=== PATIENT | female | born 1985 | race Asian ===

== ENCOUNTER 2017-01-17 09:43 | Emergency (ER) | payer OTHER ==
[2017-01-17 09:54] VITALS: BP 124/70; PULSE 80; RESP 16; TEMP 98.6; O2SAT 98
--- NOTE | 2017-01-17 10:55 | EDPHY ---
H & P Time Seen by Provider: 01/17/17 10:31 HPI/ROS: CHIEF COMPLAINT: Left knee pain HISTORY OF PRESENT ILLNESS: Patient is a 31-year-old [employer]INDING RO[employer] who presents emergency department after falling work. Patient states she fell forward with her right foot underneath her. Her left knee landed on her right shoe. She now has contusion on the medial aspect of her left knee that is causing her pain. Pain is moderate. Worse with movement. She is able to ambulate. She has no numbness or tingling. No other injury. REVIEW OF SYSTEMS: My complete review of systems is negative except as mentioned in the HPI. Past Medical/Surgical History: Denies. No previous knee injury Smoking Status: Never smoked Physical Exam: Vitals noted. 37.0 General Appearance: Alert and no distress. Head: Pupils equal. Normal. Respiratory: No respiratory distress. Cardiac: regular rate and rhythm. Extremities: patient's left knee has mild bruising on the medial aspect. There is no patellar tenderness palpation. No ligamentous instability. Full range of motion. Neurovascular intact distally. Skin: No rashes or lesions. Neuro: Alert. Normal mood and affect. Constitutional: Initial Vital Signs Temperature (C) 37.0 C 01/17/17 09:53 Heart Rate 80 01/17/17 09:53 Respiratory Rate 16 01/17/17 09:53 Blood Pressure 124/70 H 01/17/17 09:53 O2 Sat (%) 98 01/17/17 09:53 O2 Delivery Mode Room Air Allergies/Adverse Reactions: No Known Allergies Allergy (Unverified 01/17/17 09:53) Home Medications: Medication Instructions Recorded NK [No Known Home Meds] 01/17/17 Medical Decision Making - Diagnostics Imaging Results: Imaging Impressions Knee X-Ray 01/17/17 09:55 Impression: Negative left knee radiographs. ED Course/Re-evaluation: Ice was applied to her knee. In the emergency department I discussed possible etiologies with the patient. I answered all her questions. X-ray of her left knee was ordered. Left knee x-ray: Please refer the dictated report. No acute disease noted. Discussed the result with the patient. I answered all her questions. She was given warnings prior to leaving. She will return with worsening symptoms. She will follow up with workman's Comp. Differential Diagnosis: My differential includes but is not limited to fracture, dislocation, sprain, contusion, ligamentous disruption Departure - Departure Disposition: Home, Routine, Self-Care Clinical Impression: Contusion of knee, left Qualifiers: Encounter type: initial encounter Qualified Code(s): S80.02XA - Contusion of left knee, initial encounter Condition: Good Instructions: Knee Sprain (ED) Additional Instructions: Your x-ray was normal. Return with increasing pain, numbness or any other concerns. Referrals: Work Comp Referral [facility] [Outside] - 5-7 days, if not improved
== END 2017-01-17 11:16 | disposition home or self-care (01) ==
DX: S80.02XA Contusion of left knee, initial encounter (principal); W18.30XA Fall on same level, unspecified, initial encounter; Y99.0 Civilian activity done for income or pay

== ENCOUNTER 2017-05-21 14:05 | Emergency (ER) | payer OTHER ==
[2017-05-21 14:12] VITALS: TEMP 98.4
[2017-05-21] MEDS ORDERED: NS 1,000 ML IV ONE (14:45)
--- NOTE | 2017-05-21 14:46 | EDPHY ---
H & P Stated Complaint: RLQ pain since 0600 today Time Seen by Provider: 05/21/17 14:05 HPI/ROS: HPI CHIEF COMPLAINT: Abdominal pain, right lower quadrant HISTORY OF PRESENT ILLNESS: Patient 32-year-old female, she is otherwise healthy, she presents emergency room with abdominal pain. Pain is located in the right lower quadrant. She states this started around 6:00 a.m. This morning she has had nausea associated with but in no vomiting no diarrhea. She denies chest pain shortness of breath. She is currently on her menstrual cycle. She has an IUD. She denies being . Denies fever. Denies urinary symptoms. Her pain has gotten progressively worse throughout the day located right lower quadrant. She currently rates it 8/10. Sharp stabbing and achy. Past Medical History: Denies medical history Past Surgical History: Denies surgical history Social History: Denies drugs alcohol tobacco. Family History: Noncontributory ROS REVIEW OF SYSTEMS: A comprehensive 10 point review of systems is otherwise negative aside from elements mentioned in the history of present illness. Exam Constitutional triage nursing summary reviewed, vital signs reviewed, awake/ alert. Eyes normal conjunctivae and sclera, EOMI, PERRLA. HENT normal inspection, atraumatic, moist mucus membranes, no epistaxis, neck supple/ no meningismus, no raccoon eyes. Respiratory clear to auscultation bilaterally, normal breath sounds, no respiratory distress, no wheezing. Cardiovascular rate normal, regular rhythm, no murmur, no edema, distal pulses normal. Gastrointestinal mild tender palpation right lower quadrant, no rebound, no guarding, normal bowel sounds, no distension, no pulsatile mass. Genitourinary no CVA tenderness. Musculoskeletal no midline vertebral tenderness, full range of motion, no calf swelling, no tenderness of extremities, no meningismus, good pulses, neurovascularly intact. Skin pink, warm, & dry, no rash, skin atraumatic. Neurologic awake, alert and oriented x 3, AAOx3, moves all 4 extremities equally, motor intact, sensory intact, CN II-XII intact, normal cerebellar, normal vision, normal speech. Psychiatric normal mood/affect. Heme/Lymph/Immune no lymphadenopathy. Differential diagnosis includes but is not limited to and in no particular order : Ectopic , Bowel obstruction, appendicitis, gallbladder disease, diverticulitis, colitis, enteritis, perforated viscus, gastritis, GERD, esophagitis, urinary tract infection, pyelonephritis, kidney stones Medical Decision Making: Plan for this patient IV establishment IV fluid bolus , IV Dilaudid 0.5 mg for pain control, IV Zofran 4 mg for nausea, check basic blood work, proceed with CT scan abdomen pelvis with IV contrast rule out acute appendicitis. Re-evaluation: Patient's test reviewed as positive. Will proceed with ultrasound. Also check hCG quant. 1731: Spoke with Dr. Ramírez with OBGYN. For Ectopic pregnany. Will see and evaluate the patient. I have updated the patient for ectopic . 1905: Dr. Ramírez evaluating patient. 2001: Dr. aRmírez has seen evaluated the patient. They plan on going home with pain control. Extensive discussion was had about treatment options Dr. Ramírez does believe this is an ectopic . She will have a repeat HCG on Wednesday. Additionally prescription given for Percocet by Dr. Ramírez. The patient has been given strict return precautions understands return emergency room she develops worsening abdominal pain, fever, vomiting heavy vaginal bleeding. She understands the risk of going home without ectopic . She understands to return immediately if she has any worsening symptoms questions or concerns. Otherwise follow up with Dr. Ramírez. Source: Patient - Personal History LMP (Females 10-55): Now Current Tetanus Diphtheria and Acellular Pertussis (TDAP): Unsure - Medical/Surgical History Hx Asthma: No Hx Chronic Respiratory Disease: No Hx Diabetes: No Hx Cardiac Disease: No Hx Renal Disease: No Hx Cirrhosis: No Hx Alcoholism: No Hx HIV/AIDS: No Hx Splenectomy or Spleen Trauma: No Other PMH: hx IUD, left knee injury - Social History Smoking Status: Never smoked Constitutional: Initial Vital Signs Temperature (C) 36.9 C 05/21/17 14:09 Heart Rate 98 05/21/17 14:09 Respiratory Rate 20 05/21/17 14:09 Blood Pressure 124/99 H 05/21/17 14:09 O2 Sat (%) 95 05/21/17 14:09 O2 Delivery Mode Room Air Allergies/Adverse Reactions: No Known Allergies Allergy (Unverified 05/21/17 14:08) Home Medications: Medication Instructions Recorded Ibuprofen [Motrin (*)] 200 mg PO Q6 PRN 05/21/17 Medical Decision Making - Diagnostics Imaging Results: Imaging Impressions Obstetrics Ultrasound 05/21/17 15:28 Impression: A 1.3-cm mass adjacent to the right ovary compatible with an ectopic gestation, associated with mild complex free fluid in the cul-de-sac. Results called to Dr. Thompson at 5:30 p.m. - Data Points Laboratory Results: Laboratory Results 05/21/17 14:57 05/21/17 14:57 05/21/17 05/21/17 05/21/17 17:18 14:57 14:57 WBC RBC Hgb Hct MCV MCH MCHC RDW Plt Count MPV Neut % (Auto) Lymph % (Auto) [place] % (Auto) Eos % (Auto) Baso % (Auto) Nucleat RBC Rel Count Absolute Neuts (auto) Absolute Lymphs (auto) Absolute Monos (auto) Absolute Eos (auto) Absolute Basos (auto) Absolute Nucleated RBC Immature Gran % Immature Gran # PT INR APTT VBG Lactic Acid Sodium Potassium Chloride Carbon Dioxide Anion Gap BUN Creatinine Estimated GFR Glucose Calcium Total Bilirubin Conjugated Bilirubin Unconjugated Bilirubin AST ALT Alkaline Phosphatase Total Protein Albumin Lipase Beta HCG, Qual POSITIVE Beta HCG, Quant 61.74 mIU/mL H mIU/mL (0.00-4.83) Urine Color YELLOW Urine Appearance CLEAR Urine pH 5.0 (5.0-7.5) Ur Specific [place] 1.024 (1.002-1.030) Urine Protein NEGATIVE (NEGATIVE) Urine Ketones NEGATIVE (NEGATIVE) Urine Blood 2+ H (NEGATIVE) Urine Nitrate NEGATIVE (NEGATIVE) Urine Bilirubin NEGATIVE (NEGATIVE) Urine Urobilinogen NEGATIVE EU EU (0.2-1.0) Ur Leukocyte Esterase NEGATIVE (NEGATIVE) Urine RBC 1-3 /hpf /hpf (0-3) Urine WBC 1-3 /hpf /hpf (0-3) Ur Epithelial Cells TRACE /lpf /lpf (NONE-1+) Calcium Oxalate Crystal PRESENT /hpf /hpf (NONE-1+) Urine Mucus TRACE /lpf /lpf (NONE-1+) Urine Glucose NEGATIVE (NEGATIVE) 05/21/17 05/21/17 05/21/17 14:57 14:57 14:57 WBC 10.90 10^3/uL H 10^3/uL (3.80-9.50) RBC 4.84 10^6/uL 10^6/uL (4.18-5.33) Hgb 13.9 g/dL g/dL (12.6-16.3) Hct 40.9 % % (38.0-47.0) MCV 84.5 fL fL (81.5-99.8) MCH 28.7 pg pg (27.9-34.1) MCHC 34.0 g/dL g/dL (32.4-36.7) RDW 13.3 % % (11.5-15.2) Plt Count 385 10^3/uL 10^3/uL (150-400) MPV 9.3 fL fL (8.7-11.7) Neut % (Auto) 74.4 % H % (39.3-74.2) Lymph % (Auto) 16.8 % % (15.0-45.0) [place] % (Auto) 6.1 % % (4.5-13.0) Eos % (Auto) 1.1 % % (0.6-7.6) Baso % (Auto) 0.4 % % (0.3-1.7) Nucleat RBC Rel Count 0.0 % % (0.0-0.2) Absolute Neuts (auto) 8.12 10^3/uL H 10^3/uL (1.70-6.50) Absolute Lymphs (auto) 1.83 10^3/uL 10^3/uL (1.00-3.00) Absolute Monos (auto) 0.66 10^3/uL 10^3/uL (0.30-0.80) Absolute Eos (auto) 0.12 10^3/uL 10^3/uL (0.03-0.40) Absolute Basos (auto) 0.04 10^3/uL 10^3/uL (0.02-0.10) Absolute Nucleated RBC 0.00 10^3/uL 10^3/uL (0-0.01) Immature Gran % 1.2 % H % (0.0-1.1) Immature Gran # 0.13 10^3/uL H 10^3/uL (0.00-0.10) PT 12.3 SEC SEC (12.0-15.0) INR 0.89 (0.83-1.16) APTT 29.2 SEC SEC (23.0-38.0) VBG Lactic Acid Sodium 139 mEq/L mEq/L (135-145) Potassium 3.8 mEq/L mEq/L (3.5-5.2) Chloride 103 mEq/L mEq/L (97-110) Carbon Dioxide 22 mEq/l mEq/l (22-31) Anion Gap 14 mEq/L mEq/L (8-16) BUN 11 mg/dL mg/dL (7-23) Creatinine 0.5 mg/dL L mg/dL (0.6-1.0) Estimated GFR > 60 Glucose 96 mg/dL mg/dL (70-100) Calcium 9.3 mg/dL mg/dL (8.5-10.4) Total Bilirubin 0.3 mg/dL mg/dL (0.1-1.4) Conjugated Bilirubin 0.3 mg/dL mg/dL (0.0-0.5) Unconjugated Bilirubin 0.0 mg/dL mg/dL (0.0-1.1) AST 18 IU/L IU/L (14-46) ALT 30 IU/L IU/L (9-52) Alkaline Phosphatase 73 IU/L IU/L (38-126) Total Protein 7.6 g/dL g/dL (6.3-8.2) Albumin 4.2 g/dL g/dL (3.5-5.0) Lipase 64 IU/L IU/L (23-300) Beta HCG, Qual Beta HCG, Quant Urine Color Urine Appearance Urine pH Ur Specific [place] Urine Protein Urine Ketones Urine Blood Urine Nitrate Urine Bilirubin Urine Urobilinogen Ur Leukocyte Esterase Urine RBC Urine WBC Ur Epithelial Cells Calcium Oxalate Crystal Urine Mucus Urine Glucose 05/21/17 14:57 WBC RBC Hgb Hct MCV MCH MCHC RDW Plt Count MPV Neut % (Auto) Lymph % (Auto) [place] % (Auto) Eos % (Auto) Baso % (Auto) Nucleat RBC Rel Count Absolute Neuts (auto) Absolute Lymphs (auto) Absolute Monos (auto) Absolute Eos (auto) Absolute Basos (auto) Absolute Nucleated RBC Immature Gran % Immature Gran # PT INR APTT VBG Lactic Acid 1.5 mmol/L mmol/L (0.7-2.1) Sodium Potassium Chloride Carbon Dioxide Anion Gap BUN Creatinine Estimated GFR Glucose Calcium Total Bilirubin Conjugated Bilirubin Unconjugated Bilirubin AST ALT Alkaline Phosphatase Total Protein Albumin Lipase Beta HCG, Qual Beta HCG, Quant Urine Color Urine Appearance Urine pH Ur Specific [place] Urine Protein Urine Ketones Urine Blood Urine Nitrate Urine Bilirubin Urine Urobilinogen Ur Leukocyte Esterase Urine RBC Urine WBC Ur Epithelial Cells Calcium Oxalate Crystal Urine Mucus Urine Glucose Medications Given: Discontinued Medications Hydromorphone HCl (Dilaudid) 0.5 mg IVP EDNOW ONE Stop: 05/21/17 15:16 Last Admin: 05/21/17 15:55 Dose: 0.5 mg Hydromorphone HCl (Dilaudid) 0.5 mg IVP EDNOW ONE Stop: 05/21/17 17:44 Last Admin: 05/21/17 18:03 Dose: 0.5 mg Sodium Chloride (Ns) 1,000 mls @ 0 mls/hr IV EDNOW ONE; Wide Open PRN Reason: Protocol Stop: 05/21/17 14:46 Last Admin: 05/21/17 14:56 Dose: 1,000 mls Ondansetron HCl (Zofran) 4 mg IVP EDNOW ONE Stop: 05/21/17 15:16 Last Admin: 05/21/17 15:55 Dose: 4 mg Departure - Departure Disposition: Home, Routine, Self-Care Clinical Impression: Ectopic Qualifiers: Location of ectopic : abdominal Intrauterine status: without intrauterine Qualified Code(s): O00.00 - Abdominal without intrauterine Condition: Fair Instructions: Ectopic (ED) Additional Instructions: 1. Please return emergency room if develops worsening abdominal pain heavy vaginal bleeding, passing out, you do not feel well. 2. Follow up with Dr. Ramírez. Referrals: NONE *PRIMARY CARE P,. [Primary Care Provider] - As per Instructions Rosamaria Ramírez MD [Medical Doctor] - As per Instructions
[2017-05-21 15:09] LABS: PLATELET COUNT 385 10^3/uL (150-400)
[2017-05-21] MEDS ORDERED: HYDROmorphONE/DILAUDID 2 MG/ML INJ IVP ONE ×2 (15:15→17:43)
[2017-05-21] MEDS ORDERED: ONDANSETRON 4 MG/2 ML VIAL IVP ONE (15:15)
[2017-05-21 15:30] LABS: INR 0.89 (0.83-1.16); PROTIME(PATIENT) 12.3 SEC (12.0-15.0)
[2017-05-21 16:07] VITALS: RESP 16
[2017-05-21 18:04] VITALS: O2SAT 96
[2017-05-21 20:21] VITALS: BP 109/67; PULSE 84
--- NOTE | 2017-05-21 21:36 | PDCONSULT ---
[employer]er [employer] Note: ED consult from Dr. Thompson - possible ectopic CC: Abd pain HPI: 32 yo presented to the Emergency department this afternoon with abdominal pain, lower, R>L. Mild nausea, no change in bowel habits. No urinary symptoms. Sexually active with , has had Paragard IUD in place for just over a year. Reg menses q month. LMP 2/6/18. 6 d ago started spotting, and yesterday started bleeding more like a regular menses. Abd pain started this morning at 0600. 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 Took some ibuprofen and Tylenol which helped some initially, but then after noon seemed to provide minimal relief. She is accompanied by Tapan, her . Found out she was today in the ED. Notes that though unplanned, if this were a viable , she would desire keeping it. PMH: gestational DM with first Obesity Medications: topical analgesic for knee pain, prn ibuprofen and acetominophen NKDA PSH: none POBhx: term 17 mo ago, preg c/b GDM Soc: , works as HOUSING ASSISTANT, son is 17 mo old, no tobacco, her mom lives with them Objective: VSS afebrile though diastolic high at 124/99 gen: pleasant female in NAD, though received dilaudid about an hour prior to my exam CV: RRR chest: CTAB abd: soft, obese, mild tenderness in mid low abd, no rebound, no guarding pelvic: NEFG vagina: pink, no lesions, menstrual blood present cervix: parous, no lesions, no CMT, 2 cm IUD strings at os uterus: small, mobile, anteverted adnexa: difficult to outline 2/2 body habitus. Mild tenderness on R, none on L 5w3d by LMP US: Reviewed images with one of the sonographers and reviewed the report - 1.3cm R adnexal mass, suspicious for ectopic . Could have a corpus luteum cyst and and adjacent cyst. Small amount of free fluid. Labs: quant hcg = 61.74 UA with blood, o/w neg CMP wnl Nl coags, nl lactic acid WBC 10.9, Hbg 13.9 Hct 40.9 Per pt - O pos blood Imp: 32 you with of unknown location, right lower quadrant pain US imaging suspicious for right ectopic pregancy Only one data point with regards to quant hcg Long discussion with pt and about options, now that pain is well controlled. Difficult to treat for a possible ectopic with only one data point. Differential diagnosis includes: 1) ectopic - likely right 2) early IUP - could be viable, and would be desired, though would recommend IUD removal 3) early IUP - in process of miscarrying Could have a ruptured ovarian cyst causing the pain with any of the above diagnoses. Reviewed risks of observation - including rupture of ectopic , requiring emergency surgery. REviewed that there is no way to predict when an ectopic might rupture with regards to level of hcg. If patient is not in hospital, there could be a delay in diagnosis and getting her into surgery. Offered option of admission for pain control and observation overnight. Reviewed risks of treating with methotrexate - if this is not an ectopic and is an IUP, though the miscarriage risk is high with IUD removal, MTX is teratogenic and could cause serious malformations in a carried to term. Reviewed risks of taking to surgery for a diagnostic laparoscopy - including risks of anesthesia, of not finding the possible ectopic , of removing a suspicious tube or ovary and finding out from pathology there was no tissue in the specimen. Plan: After a long discussion, and pt and were allowed to discuss on their own, it was mutually decided to discharge pt home with pain medication. Rx - Percocet #30. Rx - quant hcg on Wednesday before lab closes at noon (today was drawn around 1400) . Reviewed - if it is not rising appropriately (>52%) would recommend methotrexate. If it is decreasing, needs to be a significant decrease, and must follow hcg level to non range. Strict ectopic precautions reviewed - including patient not being alone this weekend, pain refractory to medication, lightheadedness or dizziness - must go to the closest Emergency Department as may need emergency surgery for a ruptured ectopic , as this can be life threatening. They confirm they only live a few miles from an Emergency Department. Tapan = pt's . Cell is [phone] and he will be available to review results on Wednesday afternoon. > 45 min spent, with > 50% in face to face counseling. Rosamaria Ramírez MD, [facility], [facility]
== END 2017-05-21 20:20 | disposition home or self-care (01) ==
DX: O00.00 Abdominal pregnancy without intrauterine pregnancy (principal); R10.31 Right lower quadrant pain; E86.9 Volume depletion, unspecified; Z3A.00 Weeks of gestation of pregnancy not specified
CPT/HCPCS: 96374; J1170; J2405